=== PATIENT | female | born 1955 | race Caucasian/White ===

== ENCOUNTER 2020-04-16 09:55 | Emergency (ER) | payer MEDICARE ==
[~2020-04-16] VITALS: Ht 165.1 cm; Wt 96.4 kg
[2020-04-16] MEDS ORDERED: IBUP200C25 PO (10:06)
[2020-04-16] MEDS ORDERED: ASPI81TA85 PO (10:06)
[2020-04-16] MEDS ORDERED: NS 1,000 ML IV ONE (10:45)
[2020-04-16 11:34] LABS: BASO # 0.1 10^3/uL (0.0-0.2); EOS % 0.1 % (0.0-3.0); HEMATOCRIT 46.7 % (36.0-47.0); HEMOGLOBIN 15.5 g/dl (12.0-15.5); LYMPH # 1.4 10^3/uL (1.5-5.0); LYMPH % 12.4 % (24.0-44.0); MEAN CORPUSCULAR HEMOGLOBIN 30.9 pg (27.0-33.0); MEAN CORPUSCULAR HGB CONC 33.2 g/dl (32.0-36.5); MONO # 0.5 10^3/uL (0.0-0.8); MONO % 4.5 % (0.0-5.0); NEUTROPHILS # 8.9 10^3/uL (1.5-8.5); NEUTROPHILS % 81.5 % (36.0-66.0); PLATELET COUNT, AUTOMATED 490 10^3/uL (150-450); RED BLOOD COUNT 5.02 10^6/uL (4.00-5.40); WHITE BLOOD COUNT 10.9 10^3/uL (4.0-10.0)
[2020-04-16 12:44] LABS: BLOOD UREA NITROGEN 13 MG/DL (7-18); CALCIUM LEVEL 8.9 MG/DL (8.8-10.2); CARBON DIOXIDE LEVEL 24 MEQ/L (21-32); CHLORIDE LEVEL 110 MEQ/L (98-107); CK-MB VALUE MASS 2.3 NG/ML (<3.6); CPK CREATINE PHOSPHOKINASE 308 U/L (26-192); CREATININE FOR GFR 0.86 MG/DL (0.55-1.30); GLOMERULAR FILTRATION RATE > 60.0 (>45); GLUCOSE, FASTING 103 MG/DL (70-100); MAGNESIUM LEVEL 2.2 MG/DL (1.8-2.4); MB/CK RELATIVE INDEX 0.75 (< OR =4); POTASSIUM SERUM 5.1 MEQ/L (3.5-5.1); SODIUM LEVEL 140 MEQ/L (136-145)
[2020-04-16 12:45] VITALS: BP 141/63
[2020-04-16 12:45] LABS: FREE T4 1.02 NG/DL (0.76-1.46); THYROID STIMULATING HORMONE 0.611 uIU/ML (0.358-3.740); TROPONIN I < 0.02 NG/ML (< 0.10)
--- NOTE | 2020-04-16 12:59 | ECGEPIP ---
[facility] - ED Test Date: 2020-04-16 Pat Name: BISHNU GONSALEZ Department: Room: - Gender: Female Health Analyst: ct : 1955 Requested By: CORRINA Louis PA-C Order Number: [id number] Reading MD: Kylah Robles Measurements Intervals [place] Rate: 88 P: 69 [place]: 176 QRS: -8 QRSD: 82 T: 52 QT: 373 QTc: 452 Interpretive Statements SINUS RHYTHM No prior Electronically Signed on 04-16-2020 12:59:02 EDT by Kylah Robles
--- NOTE | 2020-04-22 08:49 | REP ---
RE-DICTATION Original dictation made by Dr. Duffy the day the examination was performed. REASON FOR RE-DICTATION: Inability to transcribe due to technical reasons. There are multilevel degenerative changes with disc space narrowing and osteophytosis/spondylosis. The bones are somewhat demineralized. Degenerative facet and uncovertebral joint changes are present at every level bilaterally There is no fracture. Vertebral body heights and alignment is within normal limits. The facet joints are well aligned bilaterally. There is no abnormal paraspinal soft tissue swelling. IMPRESSION: Degenerative changes. No acute fracture. Electronically Signed by Rehan Barnard DO 04/22/2020 09:51 A
--- NOTE | 2020-04-25 14:34 | REP ---
CT BRAIN WITHOUT CONTRAST: CT brain performed without IV contrast. Coronal reconstruction images are performed. Preliminary report was provided by Dr. Duffy at the time of the exam. The study is submitted to pa for dictation 04/25/2020. There is mild atrophy. There is no midline shift or mass effect. Hair/white differentiation is well maintained. There are mild small vessel ischemic changes of the periventricular white matter. There are mild vascular calcifications in the carotid siphons. The visualized paranasal sinuses and mastoid air cells are clear. IMPRESSION: Mild atrophy and vascular calcifications. No evidence of acute intracranial hemorrhage, midline shift or mass effect. Electronically Signed by Rodrigo Hair MD 04/26/2020 01:10 P
== END 2020-04-16 13:15 | disposition home or self-care (01) ==
LOC: M ED 09:55
DX: R42 Dizziness and giddiness (principal); R20.2 Paresthesia of skin; M50.80 Other cervical disc disorders, unspecified cervical region; M47.892 Other spondylosis, cervical region; R26.89 Other abnormalities of gait and mobility; E78.5 Hyperlipidemia, unspecified; Z87.442 Personal history of urinary calculi; F17.210 Nicotine dependence, cigarettes, uncomplicated; Z79.82 Long term (current) use of aspirin

== ENCOUNTER → 2021-01-03 | Outpatient (CLI) | payer OTHER ==
[~2021-01-03] MED LIST: ASPI81TA86 PO; IBUP200C25 PO
--- NOTE | 2021-01-03 09:18 | REP ---
INDICATION: STENOSIS COMPARISON: None. TECHNIQUE: Hair scale and color Doppler evaluation using linear high frequency transducer Findings: FINDINGS: Two-dimensional hair scale and color images demonstrate minimal atheromatous changes without significant narrowing or occlusion. Laminar flow noted. Color Doppler interrogation demonstrates normal arterial wave patterns and velocities with no significant spectral broadening. Normal flow direction is appreciated in the bilateral vertebral arteries. ICA peak systolic velocity: Right 89.5 cm/s; Left 78.5 cm/s ICA diastolic velocity: Right 30.9 cm/s; Left 29.5 cm/s ECA peak systolic velocity: Right 101.7 cm/s; Left 116.9 cm/s CCA peak systolic velocity: Right 102.2 cm/s; Left 113.8 cm/s ICA/CCA ratio: Right 0.9 ; Left 0.7 IMPRESSION: No hemodynamically significant areas of narrowing or stenosis appreciated. Based on set standards narrowing falls within the less than 50% range. <Electronically signed by Eloy Duffy > 01/03/21 0914
== END ==
LOC: M RAD 08:34
PROVIDERS: ATTEND Physician Assistant
DX: I65.09 Occlusion and stenosis of unspecified vertebral artery (principal)

== ENCOUNTER → 2021-09-11 | Outpatient (CLI) | payer OTHER ==
--- NOTE | 2021-09-11 20:09 | REP ---
INDICATION: RENAL MASS PROTOCOL LEFT RENAL ABNORMALITY ON MRI COMPARISON: CT dated 05/26/2020 TECHNIQUE: Real time cook scale and color Doppler ultrasound examination using curved array transducer. FINDINGS: Bilateral kidneys are essentially normal in contour, size, echogenicity, and reniform shape. Increased central sinus fat and renovascular calcifications are identified and suggest age-related changes. Right kidney measures 11.7 x 5.5 x 4.6 cm and includes 10 mm nonobstructing calculus. RI equals 0.69. No hydronephrosis, cystic or renal mass lesion identified by ultrasound. Left kidney measures 12.2 x 5.0 x 5.8 cm. RI equals 0.65. No hydronephrosis, nephrolithiasis, cystic or renal mass lesion identified by ultrasound. Bladder is grossly unremarkable and without obvious mass lesion. IMPRESSION: 1. No obvious mass lesion by ultrasound evaluation. 2. Incidental 10 mm nonobstructing right renal calculus. <Electronically signed by Eloy Duffy > 09/11/212005
--- NOTE | 2021-09-13 08:21 | DEXAMM ---
INDICATION: ASYMPTOMATIC MENOPAUSE. COMPARISON: 06/30/2008 TECHNIQUE: Bone density was measured using dual-energy x-ray absorptiometry (DEXA). FINDINGS: AP SPINE L1-L4 BMD 1.201 g/cm2 Young Adult T-Score 0.1 Age Matched Z-Score 1.6. LT FEMUR, TOTAL BMD 0.892 g/cm2 Young Adult T-Score -0.9 Age Matched Z-Score 0.2. LT NECK BMD 0.838 g/cm2 Young Adult T-Score -1.4 Age Matched Z-Score 0.0. RT FEMUR, TOTAL BMD 0.913 g/cm2 Young Adult T-Score -0.8 Age Matched Z-Score 0.4. RT NECK BMD 0.861 g/cm2 Young Adult T-Score -1.3 Age Matched Z-Score 0.2. IMPRESSION: There is normal bone density of the spine. There is low bone density of the left hip. There is low bone density of the right hip. The density of the spine has decreased 4.2% since the initial exam on 06/30/2008. The density of the left hip has decreased 3.8% since initial exam on 06/30/2008. FOLLOW-UP: Recommendation for the next bone density exam: 2 years. <Electronically signed by Rodrigo Hair > 09/13/21 0818
== END ==
LOC: M WHC 14:18
PROVIDERS: ATTEND Nurse Practitioner Family
DX: N28.1 Cyst of kidney, acquired (principal); Z78.0 Asymptomatic menopausal state; N20.0 Calculus of kidney; M85.851 Other specified disorders of bone density and structure, right thigh; M85.852 Other specified disorders of bone density and structure, left thigh

== ENCOUNTER → 2024-05-19 | Outpatient (REF) | payer OTHER | LOC: M SFHCDERM 12:29 | PROVIDERS: ATTEND Physician Assistant | DX: B02.9 Zoster without complications (principal) ==

== ENCOUNTER → 2024-08-07 | Outpatient (REF) | payer OTHER ==
[2024-08-07 13:42] LABS: APPEARANCE, URINE CLEAR (CLEAR); BACTERIA, URINE AUTO 1+ (NEGATIVE); BILIRUBIN, URINE AUTO NEGATIVE (NEGATIVE); BLOOD, URINE BLOOD 2+ (NEGATIVE); COLOR, URINE YELLOW (YELLOW); GLUCOSE, URINE (UA) AUTO NEGATIVE (NEGATIVE); KETONE, URINE AUTO NEGATIVE (NEGATIVE); LEUKOCYTE ESTERASE, URINE AUTO NEGATIVE (NEGATIVE); MUCUS, URINE SMALL (NEGATIVE); NITRITE, URINE AUTO NEGATIVE (NEGATIVE); PROTEIN, URINE AUTO NEGATIVE (NEGATIVE); RBC, URINE AUTO 9 /HPF (0-3); SPECIFIC GRAVITY URINE AUTO 1.013 (1.002-1.035); SQUAMOUS EPITHELIAL CELL UR AU 0 /HPF (0-6); UROBILINOGEN, URINE AUTO 0.2 mg/dL (0.0-2.0); WBC, URINE AUTO 0 /HPF (0-3)
== END ==
LOC: M SMT 12:31
PROVIDERS: ATTEND Physician Assistant
DX: R31.21 Asymptomatic microscopic hematuria (principal)

== ENCOUNTER → 2024-10-01 | Outpatient (CLI) | payer OTHER | LOC: M RAD 14:46 | PROVIDERS: ATTEND Physician Assistant | DX: N20.0 Calculus of kidney (principal); N28.1 Cyst of kidney, acquired ==

== ENCOUNTER → 2025-08-09 | Outpatient (REF) | payer OTHER ==
[2025-08-09 13:43] LABS: APPEARANCE, URINE CLEAR (CLEAR); BACTERIA, URINE AUTO NEGATIVE (NEGATIVE); BILIRUBIN, URINE AUTO NEGATIVE (NEGATIVE); BLOOD, URINE BLOOD 2+ (NEGATIVE); GLUCOSE, URINE (UA) AUTO NEGATIVE (NEGATIVE); KETONE, URINE AUTO NEGATIVE (NEGATIVE); LEUKOCYTE ESTERASE, URINE AUTO NEGATIVE (NEGATIVE); MUCUS, URINE SMALL (NEGATIVE); NITRITE, URINE AUTO NEGATIVE (NEGATIVE); PROTEIN, URINE AUTO NEGATIVE (NEGATIVE); RBC, URINE AUTO 19 /HPF (0-3); SPECIFIC GRAVITY URINE AUTO 1.016 (1.002-1.035); SQUAMOUS EPITHELIAL CELL UR AU 1 /HPF (0-6); UROBILINOGEN, URINE AUTO 0.2 mg/dL (0.0-2.0); WBC, URINE AUTO 9 /HPF (0-3)
== END ==
LOC: M SMT 12:43
PROVIDERS: ATTEND Physician Assistant
DX: R31.21 Asymptomatic microscopic hematuria (principal)